=== PATIENT | male | born 1990 | race Caucasian/White ===

== ENCOUNTER 2022-03-09 21:30 | Emergency (ER) | payer BC ==
[2022-03-09] MEDS ORDERED: Ondansetron 4 MG/2 ML SDV IVPUSH ONE (22:34)
[2022-03-09] MEDS ORDERED: Morphine 4 MG/ML Syringe IVPUSH ONE (22:34)
[2022-03-09] MEDS ORDERED: Ketorolac 30 MG/ML SDV IVPUSH ONE (22:34)
[2022-03-09] MEDS ORDERED: Sodium Chloride 0.9% 1,000 ML IV ONE (22:34)
[2022-03-09 23:20] LABS: CARBON DIOXIDE,CO2 27.3 mmol/L (21.0-32.0); POTASSIUM,K 3.9 mmol/L (3.5-5.1)
== END 2022-03-10 00:37 | disposition home or self-care (01) ==
LOC: MW.ED 21:30
DX: R07.9 Chest pain, unspecified (principal); R10.11 Right upper quadrant pain; Z72.0 Tobacco use
CPT/HCPCS: 36415; 76705; 80053; 83690; 83735; 84484; 85025; 85379; 87635; 93005; 96361; 96374; 96375; 99284; J1885; J2270; J2405; J7030; U0002

== ENCOUNTER 2023-10-10 12:40 | Emergency (ER) | payer BC, OTHER ==
[2023-10-10] MEDS ORDERED: Sodium Chloride 0.9% 10 ML Syringe FLUSH PRN (12:52)
[2023-10-10] MEDS ORDERED: Sodium Chloride 0.9% 2.5 ML Syringe FLUSH PRN (12:52)
[2023-10-10] MEDS: diphenhydrAMINE 50 MG/ML SDV IVPUSH ONE (13:29)
[2023-10-10] MEDS: Iopamidol 755 MG/ML 500 ML Multipack Bottle IVPUSH STA (14:02)
== END 2023-10-10 17:06 | disposition home or self-care (01) ==
LOC: MW.ED 12:40
DX: T63.441A Toxic effect of venom of bees, accidental (unintentional), initial encounter (principal); F17.210 Nicotine dependence, cigarettes, uncomplicated; Z75.8 Other problems related to medical facilities and other health care
CPT/HCPCS: 70491; 99284; Q9967